=== PATIENT | female | born 1980 | race Caucasian/White ===

== ENCOUNTER 2023-01-29 11:07 | Outpatient (AMB) | payer OTHER, SELFPAY ==
--- NOTE | 2023-01-29 13:46 | MHC.OFFWIV ---
Intake Intake Visit Reasons: CULINARY CHEF, Med review Allergies No Known Drug Allergies [NO KNOWN DRUG ALLERGIES] Allergy (Unknown, Unverified 01/29/23 13:46) NONE HPI HPI Comments History of Present Illness Details 42-year-old female presents today for refill of medication; requesting refill of her clonazepam script. She endorses that she has a f/u visit with her PCP on 01/31/23, but that her provider did not give her enough meds to get her to her f/u apt. She is requesting a bridge RX of her clonazepam. She is a patient of [facility]. Per [facility] a provider by the name of Vicki Zuñiga is scripting her Clonazepam, 0.5 mg qid, last RX filled on 01/02/23 for 120 tabs x 30 days. Also Pharmacist confirmed her fill date with radiology physician assistant was 01/02/23, and refill date is not until 02/01/2023. Patient should have enough meds to get her to her f/u visit on Tuesday01/31/2023, full dose. Provider discussed this in great detail with the patient and discussed her overtaking a prescribed controlled substance. Education provided on health risks associated with benzodiazepine and overtaking, sedation, respiratory depression and accidental overdose. I told her I could not send another RX, and even if I could the pharmacy would not allow it to be picked up until 02/01/2023. Review of Systems Const All systems reviewed & are unremarkable except as noted in HPI and below Physical Exam Const General: healthy appearing and no acute distress Nutritional Appearance: well nourished Orientation/consciousness: patient oriented x3 Limitations: no limitations Eyes General: appearance normal, both eyes and all related structures Resp Effort & Inspection: normal respiratory effort, no respiratory distress and not tachypneic Auscultation: clear to auscultation bilaterally Cardio Rate: regular rate Rhythm: regular rhythm Peripheral pulses: Peripheral pulses 2+ throughout Neuro General: patient oriented x3, gait normal and moves all extremities Extrem General: Yes normal to inspection and Yes full ROM Psych Appearance: well kempt Speech and movement: Normal speech and movement present Assessment & Plan Assessment & Plan (1) Encounter for medication refill: Code(s): Z76.0 - Encounter for issue of repeat prescription Plan: 42-year-old female patient of [facility] presents today requesting refill of her clonazepam script. Provider was unable to refill script of clonazepam, as the patient should not be out of medication. Review of PDMR and collaboration with pharmacist, patient filled her last RX on 01/02/23 and is good thru 01/31/23 full dose. Education provided on misuse and abuse of benzo's, including respiratory depression, and accidental overdose. Encouraged to maintain her scheduled f/u visit with her PCP, and to let he or she know she was out of medications on Tuesday. Coding Level of Care Code New Pt Level 3 (31656) Diagnoses Encounter for medication refill Z76.0
== END 2023-01-29 12:01 | disposition left against medical advice (07) ==
LOC: HO.HMGWI 11:07
PROVIDERS: PCP Internal Medicine
DX: Z76.0 Encounter for issue of repeat prescription (principal)
CPT/HCPCS: 99203